=== PATIENT | male | born 1995 | race Caucasian/White ===

== ENCOUNTER 2018-08-06 09:35 | Day surgery (SDC) | payer OTHER ==
[2018-07-30 10:47] LABS: ABSOLUTE BASOPHILS # (AUTO) 0.1 10^3/uL (0.0-0.2); ABSOLUTE EOSINOPHILS # (AUTO) 0.5 10^3/uL (0.0-0.6); ABSOLUTE MONOCYTES (AUTO) 0.5 10^3/uL (0.1-1.4); ABSOLUTE NEUT (AUTO) 2.4 10^3/uL (1.7-8.2); BASOPHILS % (AUTO) 2.1 % (0-2); EOSINOPHILS % (AUTO) 8.9 % (0-6); HEMOGLOBIN 16.2 g/dL (13.5-17.0); LYMPHOCYTES % (AUTO) 36.3 % (13-45); MEAN CORPUSCULAR HGB CONC 35.2 g/dL (32.0-36.0); MEAN CORPUSCULAR VOLUME 88 fl (80-97); MONOCYTES % (AUTO) 8.4 % (3-13); PLATELET COUNT 316 10^3/uL (150-450); RED BLOOD COUNT 5.21 10^6/uL (4.35-5.55); RED CELL DISTRIBUTION WIDTH 12.8 % (11.5-14.0); SEGMENTED NEUTROPHILS % (AUTO) 44.3 % (42-78); TOTAL CELLS COUNTED % (AUTO) 100 %; WHITE BLOOD COUNT 5.5 10^3/uL (4.0-10.5)
[2018-07-30 10:56] LABS: APPEARANCE,URINE SLIGHTLY-CLOUDY; BILIRUBIN,URINE NEGATIVE (NEGATIVE); COLOR,URINE YELLOW; GLUCOSE, URINE NEGATIVE (NEGATIVE); KETONES,URINE NEGATIVE (NEGATIVE); LEUKOCYTE ESTERASE,URINE NEGATIVE (NEGATIVE); NITRITE,URINE NEGATIVE (NEGATIVE); PROTEIN,URINE NEGATIVE (NEGATIVE); URINE SPECIFIC GRAVITY 1.015; UROBILINOGEN,URINE NEGATIVE mg/dL (<2.0)
[2018-07-30 11:15] LABS: ANION GAP 10 (5-19); BLOOD UREA NITROGEN 19 mg/dL (7-20); CALCIUM 10.5 mg/dL (8.4-10.2); CARBON DIOXIDE 33 mmol/L (22-30); CHLORIDE 97 mmol/L (98-107); POTASSIUM 4.4 mmol/L (3.6-5.0)
[2018-07-30 11:17] LABS: GLUCOSE 63 mg/dL (75-110)
[~2018-08-06 09:35] MED LIST: ACETAMINOPHEN 1,000 MG/100 ML RTUPB IV ONE; CEFAZOLIN 2 GM/D5W RTU 2 GM/50 ML RTUPB IV PRN; DEXAMETHASONE SOD PHOSPHATE INJ 4 MG/1 ML VIAL ONE; FENTANYL CITRATE INJ/PF 100 MCG/2 ML AMPUL ONE; LACTATED RINGERS 1000 ML IV PRN; LIDOCAINE 0.5% INJ-PF (5 MG/ML) 50 ML SDV SUBCUT PRN; MIDAZOLAM 2 MG/2 ML INJ ONE; ONDANSETRON HCL INJ/PF 4 MG/2 ML SDV ONE; PROPOFOL INJ 200 MG/20 ML VIAL IV ONE
[2018-08-06] MEDS ORDERED: CEFAZOLIN 2 GM/D5W RTU 2 GM/50 ML RTUPB IV ONE (10:05)
[2018-08-06] MEDS ORDERED: BUPIVACAINE HCL 0.5 % INJ/PF 30 ML SDV ONE ×2 (10:23→12:20)
[2018-08-06] MEDS ORDERED: FENTANYL CITRATE INJ/PF 100 MCG/2 ML AMPUL IV PRN ×3 (13:04)
[2018-08-06] MEDS ORDERED: PROMETHAZINE HCL INJ 25 MG/1 ML VIAL IV PRN ×2 (13:04)
[2018-08-06] MEDS ORDERED: MORPHINE SULFATE 10 MG/ML INJ IV PRN ×2 (13:04→14:35)
[2018-08-06] MEDS ORDERED: MEPERIDINE HCL/PF INJ 25 MG/1 ML DISP.SYRIN IV PRN (13:04)
[2018-08-06] MEDS ORDERED: DIPHENHYDRAMINE HCL 50 MG/ML VIAL IV PRN (13:04)
[2018-08-06] MEDS ORDERED: ONDANSETRON HCL INJ/PF 4 MG/2 ML SDV IV PRN ×2 (13:04→14:35)
--- NOTE | 2018-08-06 14:24 | Discharge Summary ---
Discharge Summary (SDC) - Discharge Final Diagnosis: Scapholunate ligament tear Date of Surgery: 08/06/18 Discharge Date: 08/06/18 Condition: Good Treatment or Instructions: Schedule Follow Up w/ Dr. Tobias Zurita @ [facility] for Surgery to be seen in 10-14 days or as scheduled [place]: [place]: [place]: Ice and elevate Keep splint clean/dry/intact, do not remove. If your fingers become numb please unwrap the Brennan wrap but leave the splint in place, if the sensation does not return within 30 minutes please return to the emergency department. May begin finger range of motion attempting to make full fist. Please use ibuprofen (Motrin or Advil) 600-800 mg every 8 hours as needed for pain or fever DO NOT TAKE w/ TORADOL may use once TORADOL complete. You may also use acetaminophen (Tylenol) 1000 mg every 4-6 hours as needed for pain or fever. Please be aware that many medications contain acetaminophen, do not exceed a total of 1000 mg of acetaminophen every 6 hours. If ibuprofen and acetaminophen are not sufficient for your pain you may take the Percocet/Thomas. Please be aware that the Percocet/Thomas does contain Tylenol. Stool softener of choice when on pain medication. USE OF FHAS-RWO-LKFYVXZ IBUPROFEN: Ibuprofen (Advil, Nuprin, Medipren, Motrin IB) is a medication for fever and pain control. In addition, it has anti- inflammatory effects which may be beneficial, especially in the treatment of injuries. It's best to take ibuprofen with food. Persons with ulcer disease or allergy to aspirin should notify their physician of this before taking ibuprofen. Ibuprofen can be given every four to six hours, for a total of four doses daily. Age Pain or fever dose Antiinflammatory dose 6-8 yr 200 mg (1 tab) 200 mg (1 tab) 9-11 yr 200 mg (1 tab) 200-400 mg (1-2 tab) 11-14 yr 200-400 mg (1-2 tab) 400 mg (2 tab) 15-adult 400 mg (2 tab) 600 mg (3 tab) ORAL NARCOTIC MEDICATION: You have been given a prescription for pain control. This medication is a narcotic. It's best taken with food, as nausea can result if taken on an empty stomach. Don't operate machinery or drive within six hours of taking this medication. Do not combine this medicine with alcohol, or with any medication which can cause sedation (such as cold tablets or sleeping pills) unless you get permission from the physician. Narcotics tend to cause constipation. If possible, drink plenty of fluids and eat a diet high in fiber and fruits. Please be aware that prescription narcotics also have the potential for abuse. People become addicted to these medications because of the general sense of wellbeing that they induce. This feeling along with a significant reduction in tension, anxiety, and aggression provides a stimulating seductive quality to these drugs. Once your pain is under control, we encourage you to discard your unused narcotics. Prescriptions: Ketorolac Tromethamine [Toradol 10 mg Tablet] 10 mg PO Q8HP PRN #12 tablet PRN Reason: Oxycodone HCl/Acetaminophen [Percocet 5-325 mg Tablet] 1 tab PO Q6 PRN #25 tab PRN Reason: Referrals: ANAYA FISHER MD [Primary Care Provider] - Discharge Diet: As Tolerated Respiratory Treatments at Home: Deep Breathing/Coughing Discharge Activity: No Lifting Over 10 Pounds, No Lifting/Push/Pulling Report the Following to Your Physician Immediately: Fever over 101 Degrees, Unusual Bleeding, Redness, Swelling, Warmth, Increased Soreness
--- NOTE | 2018-08-06 14:34 | Operative Report ---
Operative Report DATE OF SURGERY: 08/06/18 PREOPERATIVE DIAGNOSIS: Right wrist pain possible scapholunate ligament tear POSTOPERATIVE DIAGNOSIS: Right wrist scapholunate ligament tear Senia IV OPERATION: Right wrist arthroscopy with partial synovectomy, open scapholunate ligament repair with capsulorrhaphy SURGEON: EDIS CARNES ANESTHESIA: GA COMPLICATIONS: None ESTIMATED BLOOD LOSS: Minimal PROCEDURE: Indication for above procedure: 22-year-old male who sustained injury to his right wrist in September 2017. Attempted conservative management with injections. Patient MRI which demonstrated a questionable avulsion fracture of the triquetrum. Patient continued to have pain and thus decision was made to proceed with operative intervention. Surgical details including postoperative expectations, outcomes, prognosis and complications were explained patient verbalized understanding consented for surgical procedure. Procedure In Detail: Patient was seen and evaluated in the preoperative holding area. The RIGHT upper extremity was initialized and marked. Patient received 2g of Ancef IV for bacterial prophylaxis. Patient was taken back to the operative room where transferred to the operative table and placed under general anesthesia. Once they were adequately anesthetized a nonsterile tourniquet was placed on the upper extremity. A surgical team debriefing was performed ensuring all instrumentation was available, the surgical procedure was discussed with possible concerns reviewed. The upper extremity was prepped with chlorhexidine and alcohol and draped in a sterile fashion. A timeout was done identifying correct patient, procedure and extremity everyone in attendance agree with this and verbalized no concerns. Patient was placed in the Acumed wrist distractor. The extremity was exsanguinated the tourniquet was inflated to 250 mmHg. A 3-4 portal was established. Arthroscope introduced into the radiocarpal joint. Via triangulation a 4-5 portal was established. Diagnostic arthroscopy demonstrated disruption of the membranous portion of the scapholunate ligament with also involvement along the dorsal fibers. Synovitis was noted within the prestyloid recess. No evidence of radiocarpal degeneration. The TFCC was probed demonstrate no evidence of disruption. Partial synovectomy was performed. A midcarpal radial portal was then established and via triangulation a midcarpal ulnar portal. Lunotriquetral interval demonstrate no evidence of widening or step-off however there was widening and positive drive-through sign at the scapholunate interval. Thus decision was made to proceed with open reconstruction. C-arm fluoroscopy was obtained which confirmed no evidence of scapholunate widening or increased scapholunate angle without evidence of DISI deformity despite full-thickness tear. Longitudinal skin incision was made centered of the scapholunate interval. Blunt dissection was performed. Branches of the superficial radial nerve were identified and retracted. The distal aspect of the third dorsal compartment was elevated and a Z-plasty made within the fourth dorsal compartment to allow later repair. The capsule was then exposed a proximally based nerve sparing capsulotomy was performed. The scapholunate interval demonstrate no evidence of widening under direct visualization there was a small avulsion fracture likely from the scaphoid at the scaphoid lunate ligament insertion. This small avulsion was then excised. There continue to be intact dorsal distal fibers of the scapholunate ligament. The scapholunate interval was reduced and longitudinal skin incision was made along the heel styloid and blunt dissection was performed under direct visualization 2 x 0.045 K wires were placed across the scapholunate interval maintaining reduction. AP and lateral C-arm fluoroscopy was obtained confirming reduction maintained scapholunate angle. A Arthrex 2.4 mm anchor was then placed initial distally and a second anchor placed at the origin of the scapholunate ligament. Scapholunate ligament was then secured with Greg-Yovani suture. The distal anchor was then placed through the capsulotomy to provide further fixation. Remainder of the capsulotomy was then closed with 3-0 Vicryl suture. Extensor retinaculum was closed with interrupted 4-0 Monocryl suture. Subcutaneous tissues were closed with interrupted 4-0 Monocryl suture. Skin was closed with horizontal mattress 3-0 nylon. 30 cc of 0.5% bupivacaine without epinephrine was injected for postoperative pain control. Patient was placed in a volar and dorsal splint. Tourniquet was deflated patient had good peripheral effusion. Sponge counts, instrument counts, needle counts were correct. Patient was then awoken from anesthesia. Transferred from the operating room table to the operating room stretcher. There was no intraoperative complications patient tolerated procedure well stable to PACU. Postop plan: Patient will follow-up the office in 2 weeks, we will obtain radiographs and then we will transition to a short arm cast. We will continue K wires for 10 weeks postoperatively and then begin range of motion exercises.
[2018-08-06] MEDS ORDERED: OXYCODONE-ACETAMINOPHEN 5-325 MG TABLET PO PRN (14:35)
[2018-08-06] MEDS ORDERED: OXYCODONE-ACETAMINOPHEN 5-325 MG TABLET ONE (15:27)
--- NOTE | 2018-08-06 16:24 | RADIOLOGY REPORT (SQ) ---
EXAM DESCRIPTION: NO CHG FLUORO; WRIST RIGHT 2 VIEWS COMPLETED DATE/TIME: 08/06/2018 2:51 pm REASON FOR STUDY: RT WRIST ARTHROSCOPY, RT SCAPHOID REPAIR ASST WITH FLUORO IN OR COMPARISON: None. FLUOROSCOPY TIME: 41 seconds 4 Images saved to PACS LIMITATIONS: None. PROCEDURE: Arthroscopy. Scaphoid repair. FINDINGS: Images from fluoro document the procedure. IMPRESSION: Arthroscopy. Scaphoid repair. Refer to operative note for further information. COMMENT: PQRS 6045F: Fluoroscopy time of the procedure is documented in the report. TECHNICAL DOCUMENTATION: JOB ID: [id number] [employer]- All Rights Reserved Reading location - IP/workstation name: [email or web address]
--- NOTE | 2018-08-06 16:24 | RADIOLOGY REPORT (SQ) ---
EXAM DESCRIPTION: NO CHG FLUORO; WRIST RIGHT 2 VIEWS COMPLETED DATE/TIME: 08/06/2018 2:51 pm REASON FOR STUDY: RT WRIST ARTHROSCOPY, RT SCAPHOID REPAIR ASST WITH FLUORO IN OR COMPARISON: None. FLUOROSCOPY TIME: 41 seconds 4 Images saved to PACS LIMITATIONS: None. PROCEDURE: Arthroscopy. Scaphoid repair. FINDINGS: Images from fluoro document the procedure. IMPRESSION: Arthroscopy. Scaphoid repair. Refer to operative note for further information. COMMENT: PQRS 6045F: Fluoroscopy time of the procedure is documented in the report. TECHNICAL DOCUMENTATION: JOB ID: [id number] [employer]- All Rights Reserved Reading location - IP/workstation name: [email or web address]
[2018-08-06 17:17] VITALS: BP 124/74
== END 2018-08-06 16:50 | disposition home or self-care (01) ==
LOC: OROUT 09:35
PROVIDERS: ATTEND Orthopaedic Surgery
DX: S63.511A Sprain of carpal joint of right wrist, initial encounter (principal); X58.XXXA Exposure to other specified factors, initial encounter; Y93.67 Activity, basketball; M25.531 Pain in right wrist; M65.831 Other synovitis and tenosynovitis, right forearm
CPT/HCPCS: 36415; 85025; 80048; 81001; 73100; 29844; 25320; C1713; J2250; J3490; J1100; J3010; J2405; J2704; J0690; J0131; 01830